=== PATIENT | female | born 1995 | race Caucasian/White ===

== ENCOUNTER 2023-09-07 21:41 | Emergency (ER) | payer MEDICAID, SELFPAY ==
[2023-09-07 22:01] VITALS: BP 114/48; PULSE 74; RESP 16; TEMP 37.1; BMI 41.3
--- NOTE | 2023-09-07 22:34 | W.ED.HA ---
HPI - Headache General: Chief Complaint: Headache Stated Complaint: Migraine x3 Days Time Seen by Provider: 09/07/23 22:24 History of Present Illness: 27-year-old female with a history of morbid obesity and migraine headaches who presents to the emergency room with a migraine headache for the last 5 days. She has had photophobia, phonophobia and nausea and some vomiting. She says she had run out of her Fioricet and she is not from here she is from [place]. No focal motor deficits. No altered mental status. Review of Systems Narrative: Constitutional symptoms: Negative except as documented in HPI. Skin symptoms: Negative except as documented in HPI. Eye symptoms: Negative except as documented in HPI. ENMT symptoms: Negative except as documented in HPI. Respiratory symptoms: Negative except as documented in HPI. Cardiovascular symptoms: Negative except as documented in HPI. Gastrointestinal symptoms: Negative except as documented in HPI. Genitourinary symptoms: Negative except as documented in HPI. Musculoskeletal symptoms: Negative except as documented in HPI. Neurologic symptoms: Negative except as documented in HPI. Psychiatric symptoms: Negative except as documented in HPI. Endocrine symptoms: Negative except as documented in HPI. Physical Exam Narrative: EXAM NARRATIVE: General: Alert, no acute distress. Skin: warm and dry Head: Normocephalic Neck: Trachea midline Eye: Extraocular movements are intact. Ears, nose, mouth and throat: Tacky oral mucosa Respiratory: Respirations are non-labored Musculoskeletal: Normal ROM Neurological: Alert and oriented, No focal neurological deficit observed. Psychiatric: Cooperative, appropriate mood & affect. Course Vital Signs: Vital signs: Vital Signs Temperature 98.8 F 09/07/23 22:01 Pulse Rate 74 09/07/23 22:01 Respiratory Rate 16 09/07/23 22:01 Blood Pressure 114/48 09/07/23 22:01 Oxygen Delivery Me thod Room Air 09/07/23 22:01 MDM - Headache Medical Decision Making Assessment and plan: Intractable migraine headache Dehydration -IV fluids, IV Zofran, IV Compazine, IV Benadryl - Discharged home - Discussed plan with patient. Answered any questions. - Evaluation and treatment of this problem were appropriate in the emergency setting. No radiology studies performed this visit Discharge Plan Discharge Patient Disposition: Home Clinical Impression: Migraine Qualifiers: Migraine type: other Intractability: intractable Condition: Stable Discharge Orders: Discharge ED (Routine); Ordered 09/07/23 Ordered By: Anne-Marie Jerome Discharge Diet: Usual diet Discharge Activity: Increase activity as tolerated Patient Instructions: Migraine Headache (ED) Activity Restrictions/Additional Instructions: Thank you for choosing [facility] for your healthcare needs today. Please realize this is an emergency room and that we are providing you with a medical screening exam and this may not be complete and all inclusive of all the testing and or work up that you may need to determine your ailment or severity of your illness. You have been screened and evaluated and felt safe for discharge. Health conditions do change or evolve sometimes and as such it is important that you follow up with your Primary Doctor to be re checked, 3-5 days is a general good time frame for follow up. You are always welcome to return to the ED for re assessment if your symptoms are worsening or you have new concerns Coding Level of Care Code ED Seconds Grader for Compa Worrell
[2023-09-07] MEDS: ondansetron 2 mg/ML SDV 2 mL 8 MG IVP (22:53)
[2023-09-07] MEDS: sodium chloride 0.9% 1,000 ML 999 ML IV (22:53)
[2023-09-07] MEDS: dexamethasone 10 mg/mL INJ IVP (22:55)
[2023-09-07] MEDS: diphenhydrAMINE 50 mg/mL SDV 1mL 25 MG IVP (22:58)
[2023-09-07] MEDS: prochlorperazine 10 mg/2 mL Inj IVP (23:02)
[2023-09-08 00:08] VITALS: BP 123/66; PULSE 93; O2SAT 93
== END 2023-09-07 23:56 | disposition home or self-care (01) ==
PROVIDERS: Emergency Provider Emergency Medicine
DX: G43.919 Migraine, unspecified, intractable, without status migrainosus (principal)
CPT/HCPCS: 96361; 96374; 96375; 99284; J0780; J1100; J1200; J2405; J7030